=== PATIENT | female | born 1990 | race African-American/Black ===

== ENCOUNTER 2016-05-25 12:42 | Emergency (ER) | payer MEDICAID, OTHER ==
[~2016-05-25] VITALS: Ht 165.1 cm; Wt 63.5 kg
[2016-05-25 13:10] VITALS: BP 125/77
== END 2016-05-25 13:23 | disposition home or self-care (01) ==
LOC: ER 12:44
DX: J02.9 Acute pharyngitis, unspecified (principal); F17.210 Nicotine dependence, cigarettes, uncomplicated

== ENCOUNTER 2016-08-21 08:32 | Emergency (ER) | payer MEDICAID ==
[~2016-08-21] VITALS: Ht 167.6 cm; Wt 65.3 kg
[2016-08-21 08:47] VITALS: BP 134/69
[2016-08-21] MEDS ORDERED: cefTRIAXone SOD 1,000 MG VL IM ONE (09:30)
== END 2016-08-21 09:45 | disposition home or self-care (01) ==
LOC: ER 08:32
DX: K04.7 Periapical abscess without sinus (principal); J03.90 Acute tonsillitis, unspecified; F17.210 Nicotine dependence, cigarettes, uncomplicated
CPT/HCPCS: 96372; 99283; J0696

== ENCOUNTER 2017-01-15 19:17 | Emergency (ER) | payer MEDICAID ==
[~2017-01-15] VITALS: Ht 167.6 cm; Wt 70.8 kg
[2017-01-15 19:41] VITALS: BP 127/79
[2017-01-15] MEDS ORDERED: MORPHINE SULF INJ 2 MG/ML SYRINGE 1ML ONE (19:48)
[2017-01-15] MEDS ORDERED: ONDANSETRON ODT 4 MG TAB PO ONE ×2 (19:48→20:00)
[2017-01-15] MEDS ORDERED: MORPHINE SULF INJ 2 MG/ML SYRINGE 1ML IM ONE (20:00)
== END 2017-01-15 21:52 | disposition left against medical advice (07) ==
LOC: ER 19:21
DX: R11.2 Nausea with vomiting, unspecified (principal); Z53.21 Procedure and treatment not carried out due to patient leaving prior to being seen by health care provider
CPT/HCPCS: 96372; J2270; Q0162

== ENCOUNTER 2018-07-15 11:41 | Emergency (ER) | payer MEDICAID, OTHER ==
[~2018-07-15] VITALS: Ht 167.6 cm; Wt 67.1 kg
[2018-07-15 12:23] VITALS: BP 134/79
[2018-07-15] MEDS ORDERED: LIDOCAINE 1% HCL (LOCAL ANESTH.) INJ 20ML MDV IJ ONE (12:45)
== END 2018-07-15 13:25 | disposition home or self-care (01) ==
LOC: ER 11:45
DX: S61.211A Laceration without foreign body of left index finger without damage to nail, initial encounter (principal); F17.210 Nicotine dependence, cigarettes, uncomplicated; W26.8XXA Contact with other sharp object(s), not elsewhere classified, initial encounter; Y93.E1 Activity, personal bathing and showering; Y99.8 Other external cause status; Y92.89 Other specified places as the place of occurrence of the external cause
CPT/HCPCS: 12001